=== PATIENT | male | born 1975 ===

== ENCOUNTER → 2022-11-01 | Outpatient (CLI) | payer OTHER | END | disposition home or self-care (01) | LOC: Rad HDHVI 15:47 | PROVIDERS: ATTEND Internal Medicine Cardiovascular Disease | DX: I11.9 Hypertensive heart disease without heart failure (principal); E78.5 Hyperlipidemia, unspecified | CPT/HCPCS: 93306 ==

== ENCOUNTER → 2024-12-16 | Outpatient (CLI) | payer OTHER | END | disposition home or self-care (01) | LOC: Rad HDHVI 15:46 | PROVIDERS: ATTEND Internal Medicine Cardiovascular Disease | DX: I10 Essential (primary) hypertension (principal) | CPT/HCPCS: 93306 ==

== ENCOUNTER → 2024-12-28 | Outpatient (CLI) | payer OTHER ==
[~2024-12-28] VITALS: Ht 172.7 cm; Wt 81.2 kg
--- NOTE | 2025-01-12 11:45 | DVHSR ---
APPROVED REPORT Exam: Nuclear Stress Test Indication: CAD s/p MD Ht: 5 ft 8 in Wt: 179 lbs BSA: 1.95 m2 HR: 56 bpm BP: 121/81 mmHg BMI: 27.21 Rhythm: Bradycardia Medical History Medical History: HTN, MD, Hypercholesterolemia, Palpitations Medications: Aspirin, Losartan, Lipitor, Plavix Allergies: No known drug allergies Cardiac Risk Factors: Family Hx of CAD Stress Test Details Stress Test: Exercise stress testing was performed using a Mason protocol. HR Resting HR: 56 bpmMax Heart Rate (APMHR): 173.339616 bpm Max HR Achieved: 150 bpmTarget HR (85% APMHR): 147.505295 bpm % of APMHR: 86.71 Recovery HR: 80 bpm HR response to stress: Normal HR response to stress BP Resting BP: 121/81 mmHg Max BP: 186/77 mmHg Recovery BP: 136/73 mmHg BP response to stress: Exaggerated response ECG Resting ECG: Sinus Bradycardia Stress ECG: Sinus Tachycardia Arrhythmia: PACs, PVCs Recovery ECG: Sinus Rhythm Clinical Reason for Termination: Target HR achieved Stress Symptoms: None Exercise duration: 8 min 59 sec Exercise capacity: 10.1 METs Stress ECG Conclusion NON ISCHEMIC ECG EF >55% NON ISCHEMIC CARDIOLITE PERFUSION SCAN LESS THAN 10% LIKELIHODD FOR STRESS INDUCED ISCHEMIA NM EXAM: Myocardial Perfusion REST/STRESS Imaging Protocol: Rest Tc-99m/Stress Tc-99m 1 day Resting Data Rest SPECT myocardial perfusion imaging was performed in supine position 30 minutes following the int ravenous injection of 10.75 mCi of Tc-99m Sestamibi. Time of rest injection: 816 Date: 12/28/2024 Time of rest imagin Date: 12/28/2024 Administration Route: IV Administration Site: Right AC Exercise Stress At peak stress, the patient was injected intravenously with 29.0 mCi of Tc-99m Sestamibi. Time of stress injection: 928 Date: 12/28/2024 Time of stress imagin Date: 12/28/2024 Administration Route: IV Administration Site: Right AC Heart Rate at time of stress injection: 148 bpm. Patient continued to exercise for 1 minute(s). Gated Stress SPECT was performed 15 minutes after stress injection. The images were gated to evaluate regional wall motion and calculate left ventricular ejection fracti on. Comments Cardiolite injection at 7 minutes, 49 seconds into test. Study Data Post stress, the left ventricular ejection was 55%.. Nuclear Conclusion NON ISCHEMIC ECG EF >55% NON ISCHEMIC CARDIOLITE PERFUSION SCAN LESS THAN 10% LIKELIHODD FOR STRESS INDUCED ISCHEMIA
== END | disposition home or self-care (01) ==
LOC: Rad HDHVI 08:06
PROVIDERS: ATTEND Internal Medicine Cardiovascular Disease
DX: I49.1 Atrial premature depolarization (principal); I49.3 Ventricular premature depolarization; R00.0 Tachycardia, unspecified; R00.1 Bradycardia, unspecified; I25.10 Atherosclerotic heart disease of native coronary artery without angina pectoris; I25.2 Old myocardial infarction; I10 Essential (primary) hypertension; E11.65 Type 2 diabetes mellitus with hyperglycemia; E78.00 Pure hypercholesterolemia, unspecified; R00.2 Palpitations; Z82.49 Family history of ischemic heart disease and other diseases of the circulatory system; Z79.82 Long term (current) use of aspirin
CPT/HCPCS: 78452; 93017; A9500; 96374